=== PATIENT | male | born 1945 | race African-American/Black ===

== ENCOUNTER → 2017-08-23 | Outpatient (CLI) | payer OTHER, MEDICAID ==
--- NOTE | 2017-08-23 12:37 | RAD ---
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 Minimal scarring or carotid changes in the lung bases appears to be present. There is no effusion or pneumothorax. Postsurgical changes following prior median sternotomy and likely CABG surgery noted. No osseous abnormality is identified. Impression: No evidence of acute cardiopulmonary process.
== END | disposition home or self-care (01) ==
LOC: RAD 10:18
PROVIDERS: ATTEND Internal Medicine Cardiovascular Disease
DX: I25.10 Atherosclerotic heart disease of native coronary artery without angina pectoris (principal); R07.9 Chest pain, unspecified
CPT/HCPCS: 71020